=== PATIENT | male | born 1955 | race Two or more races ===

== ENCOUNTER 2024-08-06 08:58 | Outpatient (CLI) | payer OTHER | END 2024-08-06 09:03 | disposition home or self-care (01) | LOC: NUCLEAR 08:58 | PROVIDERS: ATTEND Internal Medicine Sports Medicine | DX: R01.1 Cardiac murmur, unspecified (principal); I35.0 Nonrheumatic aortic (valve) stenosis; I10 Essential (primary) hypertension ==